=== PATIENT | male | born 1945 | race Caucasian/White ===

== ENCOUNTER 2021-04-17 11:25 | Emergency (ER) | payer MEDICARE ==
--- NOTE | 2021-04-17 12:26 | EDM.PDOC ---
ED HPI GENERAL MEDICAL PROBLEM - General Chief Complaint: Gastrointestinal Problem Stated Complaint: POSSIBLE BLOOD IN STOOL Time Seen by Provider: 04/17/21 12:21 Source of Information: Reports: Patient History Limitations: Reports: No Limitations - History of Present Illness INITIAL COMMENTS - FREE TEXT/NARRATIVE: Patient underwent Colonoscopy with polypectomy at [facility] by Dr. Varela on 04/12/21. He takes Coumadin for Afib and DVT, it was restarted on 04/13/21. He is also currently on a Lovenox bridge. On 04/15/21, he began to have maroon stools which persists today. He was told it was probably due to the beets he ate last week. Denies N/V or abdominal pain. He has never had a GI bleed. Denies dizziness. Onset Date: 04/15/21 Severity: Mild - Related Data Allergies Allergy/AdvReac Type Severity Reaction Status Date / Time acetaminophen Allergy Other Verified 04/17/21 12:58 [From Darvocet-N] hydrocodone Allergy Other Verified 04/17/21 12:58 propoxyphene Allergy Other Verified 04/17/21 12:58 [From Darvocet-N] pseudoephedrine Allergy Other Verified 04/17/21 12:58 Home Meds: Home Meds Acetaminophen [Tylenol] 650 mg PO Q6HR PRN 04/17/21 [History] Aspirin [Ecotrin EC] 81 mg PO DAILY 04/17/21 [History] Bimatoprost [LUMIGAN 0.01% Ophth Soln] 1 drop EYEBOTH BEDTIME 04/17/21 [History] Bisacodyl [Laxative Suppository] 10 mg RECTAL DAILY PRN 04/17/21 [History] Brimonidine Tartrate/Timolol [Combigan 0.2%-0.5% Eye Drops] 1 drop EYEBOTH BID 04/17/21 [History] Calcium Carbonate [Tums] 1,000 mg PO Q4HR PRN 04/17/21 [History] Empagliflozin [Jardiance] 25 mg PO DAILY 04/17/21 [History] Enoxaparin [Lovenox] 100 mg SUBCUT BID 04/17/21 [History] Finasteride [Proscar] 5 mg PO DAILY 04/17/21 [History] Fluorometholone [Fluorometholone 0.1% Ophth Susp] 1 drop EYEBOTH DAILY 04/17/21 [History] Furosemide 20 mg PO BID 04/17/21 [History] Gabapentin [Neurontin] 600 mg PO BEDTIME 04/17/21 [History] Insulin Degludec [Tresiba Flextouch U-100] 35 unit SUBCUT BEDTIME 04/17/21 [History] Iron Polysaccharides Complex [Ferrex 150] 150 mg PO BID 04/17/21 [History] Losartan [Cozaar] 12.5 mg PO DAILY 04/17/21 [History] Magnesium Hydroxide [Milk of Magnesia] 30 ml PO DAILY PRN 04/17/21 [History] Magnesium Oxide [Magnesium] 400 mg PO DAILY 04/17/21 [History] Metoprolol Succinate [Toprol XL] 12.5 mg PO BID 04/17/21 [History] Naloxegol Oxalate [Movantik] 25 mg PO DAILY 04/17/21 [History] Nitroglycerin [Nitrostat] 0.4 mg SL ASDIRECTED PRN 04/17/21 [History] Rosuvastatin [Crestor] 20 mg PO BEDTIME 04/17/21 [History] Warfarin [Coumadin] 7.5 mg PO DAILY 04/17/21 [History] metFORMIN [Glucophage] 500 mg PO BID 04/17/21 [History] oxyCODONE 5 - 10 mg PO Q4HR PRN 04/17/21 [History] polyethylene glycoL 3350 [MiraLAX] 17 g PO DAILY PRN 04/17/21 [History] traMADol [Ultram] 50 mg PO Q6HR PRN 04/17/21 [History] Past Medical History Cardiovascular History: Reports: Afib, CAD, Heart Failure, Hypertension, [place] Gastrointestinal History: Reports: GERD Endocrine/Metabolic History: Reports: Diabetes, Type II ED ROS GENERAL - Review of Systems Review Of Systems: Comprehensive ROS is negative, except as noted in HPI. ED EXAM, GENERAL - Physical Exam Exam: See Below Exam Limited By: No Limitations General Appearance: Alert, WD/WN, No Apparent Distress Throat/Mouth: Normal Inspection, No Airway Compromise Head: Atraumatic, Normocephalic Neck: Full Range of Motion Respiratory/Chest: No Respiratory Distress, Lungs Clear, Normal Breath Sounds Cardiovascular: Regular Rate, Rhythm, No Murmur GI/Abdominal: Normal Bowel Sounds, Soft, Non-Tender, No Distention Rectal (Males) Exam: Heme + Stool, Other (maroon stool) Back Exam: Full Range of Motion Extremities: Normal Range of Motion Neurological: Alert, Normal Cognition Psychiatric: Normal Affect, Normal Mood Skin Exam: Warm, Dry, Intact Course - Vital Signs Last Recorded V/S: Last Vital Signs Temp 36.7 C 04/17/21 12:00 Pulse 64 04/17/21 12:00 Resp 16 04/17/21 12:00 BP 114/58 L 04/17/21 12:00 Pulse Ox 100 04/17/21 12:00 - Orders/Labs/Meds Orders: Active Orders 24 hr Category Date Time Status PATIENT RETYPE [BBK] Stat Lab 04/17/21 11:50 Results TYPE AND SCREEN [BBK] Stat Lab 04/17/21 11:50 Results Labs: Laboratory Tests 04/17/21 04/17/21 04/17/21 Range/Units 11:50 11:50 11:50 WBC 7.3 (3.2-10.1) x10-3/uL RBC 3.25 L (3.90-5.90) x10(6)uL Hgb 9.3 L (12.9-17.7) g/dL Hct 29.5 L (38.3-50.1) % MCV 90.6 (80.8-98.7) fL MCH 28.6 (27.0-33.3) pg MCHC 31.6 (28.7-35.3) g/dL RDW 16.7 H (12.4-15.0) % Plt Count 181 (117-477) x10(3)uL MPV 8.3 (6.7-11.0) fL Neut % (Auto) 72.8 H (40.3-71.8) % Lymph % (Auto) 19.4 (15.8-45.3) % [place] % (Auto) 6.1 (5.5-15.2) % Eos % (Auto) 0.8 (0.1-6.8) % Baso % (Auto) 0.9 (0.3-3.8) % Neut # (Auto) 5.3 (1.7-6.9) x10-3/uL Lymph # (Auto) 1.4 (0.5-4.5) x10-3/uL [place] # (Auto) 0.4 (0.0-1.2) x10-3/uL Eos # (Auto) 0.1 (0.0-0.6) x10-3/uL Baso # (Auto) 0.1 (0.0-0.3) x10-3/uL PT 13.5 H (9.0-11.1) sec INR 1.27 H (1.00-1.24) Sodium 142 (135-145) mmol/L Potassium 4.2 (3.5-5.3) mmol/L Chloride 105 (100-110) mmol/L Carbon Dioxide 29 (21-32) mmol/L BUN 24 H (7-18) mg/dL Creatinine 1.2 (0.70-1.30) mg/dL Est Cr Clr Drug Dosing TNP Estimated GFR (MDRD) 59 L (>60) BUN/Creatinine Ratio 20.0 (9-20) Glucose 152 H (80-116) mg/dL Calcium 7.6 L (8.6-10.2) mg/dL Total Bilirubin 0.2 (0.1-1.3) mg/dL AST 17 (5-25) IU/L ALT 28 (12-36) U/L Alkaline Phosphatase 58 (56-112) IU/L Total Protein 5.6 L (6.0-8.0) g/dL Albumin 3.2 (3.2-4.6) g/dL Globulin 2.4 g/dL Albumin/Globulin Ratio 1.3 Blood Type Gel Antibody Screen 04/17/21 Range/Units 11:50 WBC (3.2-10.1) x10-3/uL RBC (3.90-5.90) x10(6)uL Hgb (12.9-17.7) g/dL Hct (38.3-50.1) % MCV (80.8-98.7) fL MCH (27.0-33.3) pg MCHC (28.7-35.3) g/dL RDW (12.4-15.0) % Plt Count (117-477) x10(3)uL MPV (6.7-11.0) fL Neut % (Auto) (40.3-71.8) % Lymph % (Auto) (15.8-45.3) % [place] % (Auto) (5.5-15.2) % Eos % (Auto) (0.1-6.8) % Baso % (Auto) (0.3-3.8) % Neut # (Auto) (1.7-6.9) x10-3/uL Lymph # (Auto) (0.5-4.5) x10-3/uL [place] # (Auto) (0.0-1.2) x10-3/uL Eos # (Auto) (0.0-0.6) x10-3/uL Baso # (Auto) (0.0-0.3) x10-3/uL PT (9.0-11.1) sec INR (1.00-1.24) Sodium (135-145) mmol/L Potassium (3.5-5.3) mmol/L Chloride (100-110) mmol/L Carbon Dioxide (21-32) mmol/L BUN (7-18) mg/dL Creatinine (0.70-1.30) mg/dL Est Cr Clr Drug Dosing Estimated GFR (MDRD) (>60) BUN/Creatinine Ratio (9-20) Glucose (80-116) mg/dL Calcium (8.6-10.2) mg/dL Total Bilirubin (0.1-1.3) mg/dL AST (5-25) IU/L ALT (12-36) U/L Alkaline Phosphatase (56-112) IU/L Total Protein (6.0-8.0) g/dL Albumin (3.2-4.6) g/dL Globulin g/dL Albumin/Globulin Ratio Blood Type AB NEGATIVE Gel Antibody Screen Negative Meds: Medications Discontinued Medications Generic Name Dose Route Start Last Admin Trade Name Freq PRN Reason Stop Dose Admin Pantoprazole Sodium 40 mg 04/17/21 12:41 04/17/21 12:45 Pantoprazole 40 Mg Vial IVPUSH 04/17/21 12:42 Not Given ONETIME ONE Sodium Chloride 10 ml 04/17/21 12:40 Sodium Chloride 0.9% 10 Ml Syringe FLUSH ASDIRECTED PRN Keep Vein Open - Re-Assessments/Exams Free Text/Narrative Re-Assessment/Exam: 04/17/21 12:48 Most recent Hb=9.9 on 02/11/21 ([facility] records). Dr. Garcia recommends observation admission to [facility], hold anticoagulants, recheck Hb and INR in am. Dr. Mathews accepts admission. Patient refused admission to [facility], states that he wants to attend graduation. Patient signed out AMA despite being advised that by doing so he risks or disability. Patient is also advised that he is welcome to return to the ED at anytime for further care. Departure - Departure Time of Disposition: 12:54 Disposition: Against Medical Advice 07 Condition: Fair Clinical Impression: Lower gastrointestinal hemorrhage - Discharge Information *PRESCRIPTION DRUG MONITORING PROGRAM REVIEWED*: No *COPY OF PRESCRIPTION DRUG MONITORING REPORT IN PATIENT RUFINO: Not Applicable Referrals: PCP,Not In Area [Primary Care Provider] - Forms: ED Department Discharge Sepsis Event Note (ED) - Focused Exam Vital Signs: Vital Signs Temp Pulse Resp BP Pulse Ox 04/17/21 12:00 36.7 C 64 16 114/58 L 100 04/17/21 11:25 36.7 C 64 16 114/58 L 100 - My Orders Last 24 Hours: My Active Orders 04/17/21 11:50 PATIENT RETYPE [BBK] Stat TYPE AND SCREEN [BBK] Stat - Assessment/Plan Last 24 Hours: My Active Orders 04/17/21 11:50 PATIENT RETYPE [BBK] Stat TYPE AND SCREEN [BBK] Stat
[2021-04-17] MEDS ORDERED: Sodium Chloride 0.9% 10 ML Syringe FLUSH PRN (12:40)
[2021-04-17] MEDS: Pantoprazole 40 MG Vial IVPUSH ONE (12:45)
== END 2021-04-17 13:05 | disposition left against medical advice (07) ==
LOC: FB.ED 11:25
DX: K92.2 Gastrointestinal hemorrhage, unspecified (principal); I48.91 Unspecified atrial fibrillation; I25.10 Atherosclerotic heart disease of native coronary artery without angina pectoris; I11.0 Hypertensive heart disease with heart failure; I50.9 Heart failure, unspecified; I25.2 Old myocardial infarction; E11.9 Type 2 diabetes mellitus without complications; Z79.4 Long term (current) use of insulin; Z79.899 Other long term (current) drug therapy
CPT/HCPCS: 36415; 80053; 82272; 85025; 85610; 86850; 86900; 86901; 99284